=== PATIENT | male | born 2000 | race Caucasian/White ===

== ENCOUNTER 2021-04-21 18:17 | Emergency (ER) | payer OTHER | END 2021-04-21 19:19 | disposition home or self-care (01) | LOC: CSHERS 18:17 | DX: B07.8 Other viral warts (principal) | CPT/HCPCS: 99283 ==

== ENCOUNTER 2022-03-24 08:59 | Emergency (ER) | payer MEDICAID ==
[2022-03-24] MEDS ORDERED: Ketorolac Tromethamine 30 MG/ML VIAL ONE ×2 (11:43→11:46)
== END 2022-03-24 12:30 | disposition home or self-care (01) ==
LOC: CSHERS 08:59
DX: B34.9 Viral infection, unspecified (principal); Z20.822 Contact with and (suspected) exposure to COVID-19
CPT/HCPCS: 87804; 96372; 99283; J1885; U0003; U0005